=== PATIENT | female | born 1995 | race Caucasian/White ===

== ENCOUNTER 2017-07-25 14:41 | Emergency (ER) | payer OTHER ==
[2017-07-25 15:23] VITALS: BP 119/70
--- NOTE | 2017-07-25 15:46 | UC ---
Ear Complaint HPI - HPI Summary HPI Summary: C/O bilateral ear ache for 2 weeks. Cough and congestion. Smoker. No fevers. Had a sore throat at the beginning of the week. Post nasal drip. - History of Current Complaint Chief Complaint: UCEar Stated Complaint: EAR PAIN Hx Obtained From: Patient Hx Last Menstrual Period: iud 2 months ago ?: No Onset/Duration: Gradual Onset, Lasting Weeks, Still Present Severity Initially: Mild Severity Currently: Moderate Pain Intensity: 7 Aggravating Factors: Nothing Alleviating Factors: Nothing Associated Signs/Symptoms: Positive: URI Symptoms Related History: Seasonal Allergies - Allergies/Home Medications Allergies/Adverse Reactions: Allergies Allergy/AdvReac Type Severity Reaction Status Date / Time amoxicillin Allergy Rash Verified 07/25/17 15:23 Home Medications: Home Medications Acetaminophen [Tylophen] 1,000 mg PO 07/25/17 [History] FLUoxetine CAP* [PROzac CAP*] 20 mg PO DAILY 07/25/17 [History Confirmed ] PMH/Surg Hx/FS Hx/Imm Hx Previously Healthy: Yes - Surgical History Surgical History: None - Family History Known Family History: Positive: Hypertension, Diabetes - Social History Lives: With Family Alcohol Use: None Substance Use Type: Marijuana Substance Use Comment - Amount & Last Used: monthly Smoking Status (MU): Light Every Day Tobacco Smoker Type: Cigarettes Amount Used/How Often: 1 pack Length of Time of Smoking/Using Tobacco: 8 years Household Exposure Type: Cigarettes Cessation Counseling: Patient Advised to Stop - Immunization History Most Recent Influenza Vaccination: current Most Recent Tetanus Shot: March 2013 Review of Systems Constitutional: Fatigue ENT: Sore Throat, Ear Ache, Nasal Discharge Respiratory: Cough Is Patient Immunocompromised?: No All Other Systems Reviewed And Are Negative: Yes Physical Exam Triage Information Reviewed: Yes Appearance: No Pain Distress, Well-Nourished, Ill-Appearing Vital Signs: Initial Vital Signs Temp 98.7 F 07/25/17 15:19 Pulse 70 07/25/17 15:19 Resp 18 07/25/17 15:19 BP 119/70 07/25/17 15:19 Pulse Ox 98 07/25/17 15:19 Vital Signs Reviewed: Yes Eyes: Positive: Conjunctiva Clear ENT: Positive: Pharynx normal, Nasal congestion, TMs normal Neck exam: Normal Respiratory Exam: Normal Cardiovascular Exam: Normal Musculoskeletal Exam: Normal Neurological Exam: Normal Psychological Exam: Normal Skin Exam: Normal Ear Complaint Course/Dx - Differential Dx/Diagnosis Differential Diagnosis/HQI/PQRI: Otitis Externa, Otitis Media, URI Provider Diagnoses: Acute URI. Allergic rhinitis. Bilateral eustachian tube dysfunction. Discharge - Sign-Out/Discharge Documenting (check all that apply): Discharge/Admit/Transfer - Discharge Plan Condition: Stable Disposition: HOME Patient Education Materials: Allergic Rhinitis (ED), Upper Respiratory Infection (ED), Earache (ED) Referrals: Lovely Nolen NP [Primary Care Provider] - Additional Instructions: Smoking Cessation Tricks. 1. Cut down by 1 cigarette per day every 2-3 days. Write the number of smokes for that day on the calendar. 2. Identify triggers to smoking: after meals, on the phone, in the car, with coffee, on breaks at work, etc. 3. Formulate a plan with a behavior to replace the smoking. Fireballs in the car , doodle pad on the phone, flavored creamer for the coffee, go for a walk after a meal or on break at work. 4. For stress smokes do deep breathing relaxation. Breath deep in through the nose hold the breath in for a few seconds then breath out slowly through the mouth. [employer] SINUS RINSE: CHECK OUT AT [employer] Saline nasal wash helps with mucous, allergies and congestion. It can be used up to twice a day or only as needed. Use lukewarm tap water. It does not have to be sterilized or distilled water. Do 1/3 on each side and snort out of both nostrils. Repeat the process with 1/6 of the bottle on each side with snorting in between to finish the solution in the bottle NASAL SPRAYS AND DROPS: Afrin in the PUMP/ MIST bottle (Get generic 12 hours nasal decongestant spray). Tilt your head down and look at the floor while doing a strong sniff with the spray. Decongestant nasal sprays and drops often give dramatic relief from congestion. They are often recommended for patients with sinus infection to assist with sinus drainage. Persons with high blood pressure should consult the doctor before using these nasal sprays. Afrin and Jayson-Synephrine are common [id number] preparations. They should not be used for more than five days, as "rebound" congestion can occur - - the congestion flares as the drug wears off. A way of dealing with this rebound congestion problem is to medicate only one nostril each time, allowing the other nostril to recover from the medicine' s effects. When you no longer need the drug during the day, spray only one nostril each night. This helps you sleep well without severe rebound congestion. Call the doctor if you develop severe headache, palpitations, or chest pain. - Billing Disposition and Condition Condition: STABLE Disposition: HOME
== END 2017-07-25 16:03 | disposition home or self-care (01) ==
LOC: UCCORT 14:41
DX: J06.9 Acute upper respiratory infection, unspecified (principal); J30.9 Allergic rhinitis, unspecified; H69.83 Other specified disorders of Eustachian tube, bilateral; Z88.0 Allergy status to penicillin
CPT/HCPCS: 99211; G0463

== ENCOUNTER 2018-10-07 17:12 | Emergency (ER) | payer OTHER ==
--- NOTE | 2018-10-07 17:26 | UC ---
UC General HPI - HPI Summary HPI Summary: here for staple removal. pari placed by ER about 7 days ago. she denies headache and any other complaints. - History of Current Complaint Stated Complaint: STAPLE REMOVAL Time Seen by Provider: 10/07/18 17:21 Hx Last Menstrual Period: iud 2 months ago Associated Signs & Symptoms: Negative: Edema, Fever, Headache - Allergy/Home Medications Allergies/Adverse Reactions: Allergies Allergy/AdvReac Type Severity Reaction Status Date / Time amoxicillin Allergy Rash Verified 07/25/17 15:23 Penicillins Allergy Hives Verified 10/07/18 17:33 mushroom Allergy Anaphylatic Uncoded 10/07/18 17:34 Shock Home Medications: Home Medications ALPRAZolam TAB* [Xanax TAB*] 0.25 mg PO DAILY 10/07/18 [History Confirmed ] PMH/Surg Hx/FS Hx/Imm Hx - Additional Past Medical History Additional PMH: IVDA, Renal disease Psychological History: Anxiety - Surgical History Surgical History: None - Family History Known Family History: Positive: Hypertension, Diabetes - Social History Alcohol Use: None Substance Use Type: Marijuana Substance Use Comment - Amount & Last Used: monthly Smoking Status (MU): Light Every Day Tobacco Smoker Type: Cigarettes Amount Used/How Often: 1 pack Length of Time of Smoking/Using Tobacco: 8 years Household Exposure Type: Cigarettes - Immunization History Most Recent Influenza Vaccination: current Most Recent Tetanus Shot: March 2013 Review of Systems All Other Systems Reviewed And Are Negative: No Constitutional: Negative: Fever, Chills Skin: Negative: Rash Neurological: Negative: Headache Physical Exam Triage Information Reviewed: Yes Appearance: Well-Appearing Vital Signs Reviewed: Yes Eyes: Positive: Conjunctiva Clear Neck: Positive: Supple Neurological: Positive: Alert Psychological: Positive: Age Appropriate Behavior Skin Exam: Normal, Other - 4 pari back of head. site healed. no erythema, swelling or tenderness. Course/Dx - Course Course Of Treatment: pari removed by this PA. pt tolerated well. - Diagnoses Provider Diagnosis: Removal of pari Discharge - Sign-Out/Discharge Documenting (check all that apply): Patient Departure All imaging exams completed and their final reports reviewed: No Studies - Discharge Plan Condition: Stable Disposition: HOME Patient Education Materials: Stitches Removal (ED) Referrals: Lovely Nolen NP [Primary Care Provider] - If Needed - Billing Disposition and Condition Condition: STABLE Disposition: Home
[2018-10-07 17:33] VITALS: BP 145/93
== END 2018-10-07 17:36 | disposition home or self-care (01) ==
LOC: UCCORT 17:12
DX: Z48.02 Encounter for removal of sutures (principal); F17.210 Nicotine dependence, cigarettes, uncomplicated; F41.9 Anxiety disorder, unspecified
CPT/HCPCS: 99211; G0463

== ENCOUNTER 2019-07-06 08:22 | Emergency (ER) | payer MEDICAID, OTHER ==
--- NOTE | 2019-07-06 08:28 | UC ---
UC General HPI - HPI Summary HPI Summary: left side of throat hurts to swallow Fever yesterday - 101 No fever today, but took tylenol 1 gm No cough No congestion or runny nose. Vomited x 3 yesterday Ate some cereal this morning No sick contacts PMhx; No Smokes; 1/2 ppd x 10 years denies EtOH or drug use Meds: None Lives with mom and step father - History of Current Complaint Stated Complaint: SORE THROAT,COUGH,FEVER Time Seen by Provider: 07/06/19 08:24 Hx Last Menstrual Period: iud 2 months ago - Allergy/Home Medications Allergies/Adverse Reactions: Allergies Allergy/AdvReac Type Severity Reaction Status Date / Time amoxicillin Allergy Rash Verified 07/06/19 08:33 Penicillins Allergy Hives Verified 07/06/19 08:33 mushroom Allergy Anaphylatic Uncoded 07/06/19 08:33 Shock Home Medications: Home Medications Azithromyxin ILDA (NF) [Z-Ilda (Zithromax) 250 mg tabs #6] 2 tab PO .TODAY, THEN 1 DAILY #6 tab 07/06/19 [Rx] PMH/Surg Hx/FS Hx/Imm Hx Previously Healthy: Yes - Surgical History Surgical History: None - Family History Known Family History: Positive: Hypertension, Diabetes - Social History Alcohol Use: None Substance Use Type: Marijuana Substance Use Comment - Amount & Last Used: monthly Smoking Status (MU): Light Every Day Tobacco Smoker Type: Cigarettes Amount Used/How Often: 1 pack Length of Time of Smoking/Using Tobacco: 8 years Household Exposure Type: Cigarettes - Immunization History Most Recent Influenza Vaccination: current Most Recent Tetanus Shot: March 2013 Review of Systems All Other Systems Reviewed And Are Negative: Yes Constitutional: Positive: Fever ENT: Positive: Sore Throat Physical Exam Triage Information Reviewed: Yes Appearance: Well-Appearing Vital Signs Reviewed: Yes Eyes: Positive: Conjunctiva Clear ENT: Positive: Pharyngeal erythema, TMs normal, Tonsillar swelling Neck: Positive: Supple, Enlarged Nodes @ - anterior cervical nodes Respiratory: Positive: Decreased breath sounds Cardiovascular: Positive: RRR, No Murmur Skin Exam: Normal Course/Dx - Course Course Of Treatment: This is a 24 yr old with a sore throat and fever Rapid strep: positive Nontoxic appearing Anaphylaxis to PCN Plan Start Azithromycin as prescribed continue rest, plenty of fluids and tylenol and/or ibuprofen as needed for pain/ fever If symptoms persist or worsen, recommend follow up with PCP or return to urgent care - Diagnoses Provider Diagnosis: Pharyngitis due to group A beta hemolytic Streptococci Discharge ED - Sign-Out/Discharge Documenting (check all that apply): Patient Departure All imaging exams completed and their final reports reviewed: No Studies - Discharge Plan Condition: Fair Disposition: HOME Prescriptions: Azithromyxin ILDA (NF) [Z-Ilda (Zithromax) 250 mg tabs #6] 2 tab PO .TODAY, THEN 1 DAILY #6 tab Patient Education Materials: Strep Throat (ED) Referrals: Lovely Nolen NP [Primary Care Provider] - Additional Instructions: Start Azithromycin as prescribed continue rest, plenty of fluids and tylenol and/or ibuprofen as needed for pain/ fever If symptoms persist or worsen, recommend follow up with PCP or return to urgent care - Billing Disposition and Condition Condition: FAIR Disposition: Home
[2019-07-06 08:40] VITALS: BP 107/67
== END 2019-07-06 09:05 | disposition home or self-care (01) ==
LOC: UCCORT 08:22
DX: J02.0 Streptococcal pharyngitis (principal); B95.0 Streptococcus, group A, as the cause of diseases classified elsewhere; Z88.0 Allergy status to penicillin; Z91.018 Allergy to other foods; F17.210 Nicotine dependence, cigarettes, uncomplicated
CPT/HCPCS: 87651; 99212; G0463